=== PATIENT | male | born 1955 | race Caucasian/White ===

== ENCOUNTER 2017-10-09 19:55 | Inpatient (IN) | payer OTHER ==
[~2017-10-09] VITALS: Ht 182.9 cm; Wt 99.8 kg
--- NOTE | 2017-10-09 21:50 | ED GENERAL ADULT ---
History of Present Illness General Chief Complaint: Male Genitourinary Problems Stated Complaint: URINATING BLOOD Source: patient Exam Limitations: no limitations Vital Signs & Intake/Output Vital Signs & Intake/Output Vital Signs Date Time Temp Pulse Resp B/P B/P Pulse O2 O2 Flow FiO2 Mean Ox Delivery Rate 10/10 0046 98.7 99 17 141/80 98 Room Air 10/09 2330 98.5 98 20 125/72 96 Room Air 10/09 2238 100 18 130/82 96 Room Air 10/09 2004 96.0 117 18 97 Room Air ED Intake and Output 10/10 0000 10/09 1200 Intake Total 100 Output Total Balance 100 Intake, IV 100 Patient 220 lb Weight Allergies Coded Allergies: NO KNOWN ALLERGIES (01/18/13) Triage Note: PT TO ER C/C DIFFICULTY VOIDED, VOIDING CLOTS X 1 DAY. PAIN 02/05. DENIES N/V/D Triage Nurses Notes Reviewed? yes Onset: Gradual Duration: months Timing: intermittent HPI: 62 y/o male with h/o HTN and GA presenting with hematuria, clots and urinary retention x6 hours. Reports intermittent episodes of painless hematuria with clots overthe past several months. Normally self resolves, and therefore never sought medical evaluation. Nahomi had an episode of hematuria with clots that has now led to urinary retention and gradual onset suprapubic pain. Denies fevers, dysuria, flank pain. (Genny Bosch) Reconcile Medications Aspirin (Aspirin*) 325 MG TABLET 325 MG PO DAILY BLOOD THINNER (Reported) Lisinopril (Unknown Strength) TABLET (Unknown Dose) HTN (Reported) Metoprolol Succ XL (Toprol XL) (Unknown Strength) TAB (Unknown Dose) HTN ( Reported) Simvastatin (Simvastatin*) (Unknown Strength) TABLET (Unknown Dose) HTN ( Reported) (Virgil Clemons MD) Past History Travel History Traveled to [place] past 21 day No Medical History Any Pertinent Medical History? see below for history Cardiovascular: hypertension, myocardial infarction History of MRSA: No History of VRE: No History of CDIFF: No Surgical History Surgical History: non-contributory Psychosocial History Who do you live with Spouse Services at Home None What is your primary language Barbadian Tobacco Use: Current Not Daily Family History Family History, If Any: BROTHER Relation not specified for: FH: heart attack Hx Contributory? No (Genny Bosch) Review of Systems Review of Systems Constitutional: Reports: no symptoms. EENTM: Reports: no symptoms. Respiratory: Reports: no symptoms. Cardiovascular: Reports: no symptoms. GI: Reports: see HPI. Genitourinary: Reports: see HPI. Musculoskeletal: Reports: no symptoms. Skin: Reports: no symptoms. Neurological/Psychological: Reports: no symptoms. Hematologic/Endocrine: Reports: no symptoms. Immunologic/Allergic: Reports: no symptoms. (Genny Bosch) Physical Exam Physical Exam General Appearance: well developed/nourished, alert, awake, mild distress Head: atraumatic, normal appearance Eyes: Bilateral: normal appearance. Neck: normal inspection Respiratory: normal breath sounds, lungs clear Cardiovascular: regular rate/rhythm Gastrointestinal: soft, non-tender Back: normal inspection Extremities: normal inspection Neurologic/Psych: awake, alert, oriented x 3, normal gait, normal mood/affect Skin: intact, normal color, warm/dry Core Measures ACS in differential dx? No CVA/TIA Diagnosis: No Sepsis Present: No Sepsis Focused Exam Completed? No (Genny Bosch) Progress Differential Diagnoses I considered the following diagnoses in my evaluation of the patient: [Cystitis vs renal stone vs bladder malignancy vs RCC] Plan of Care: Orders Procedure Date/time Status Clear Liquid Diet 10/10 B Active CBC WITHOUT DIFFERENTIAL 10/10 0600 Active BASIC ELECTROLYTES PLUS BUN&CR 10/10 0600 Active Weight 10/10 0340 Active Teach/Educate 10/10 0340 Active Pain Treatment and Response 10/10 0340 Active Nutritional Intake, Monitor 10/10 0340 Active Isolation 10/10 0340 Active Patient Care Conference 10/10 0340 Active Pathway - chart 10/10 0306 Active Patient Data 10/10 0259 Active Code Status 10/10 0259 Active PATHOLOGY SPECIMEN 10/[address] in observation 10/10 UNK Active VTE Mechanical Prophylaxis 10/10 UNK Active Vital Signs 10/10 UNK Active Intake & Output 10/10 UNK Active Nevarez, Insertion/Removal/Asses 10/10 UNK Active Continuous Bladder Irrigation 10/10 UNK Active Activity/Ambulation 10/10 UNK Active EKG 10/09 2311 Active Continuous Bladder Irrigation 10/09 215 Active CULTURE,URINE 10/09 2144 Active URINALYSIS 10/09 2144 Active CBC WITHOUT DIFFERENTIAL 10/09 2144 Complete BASIC METABOLIC PANEL 10/09 2144 Complete Current Medications Sig/Ronal Start time Last Medication Dose Stop Time Status Admin Heparin Sodium 5,000 UNIT Q8 10/10 1400 AC (Porcine) Docusate Sodium 100 MG BID 10/10 0900 AC (Colace) Acetaminophen 650 MG Q6P PRN 10/10 314 AC (Tylenol) Dextrose/Sodium 1,000 ML .Q10H 10/10 031 AC 10/10 Chloride 0403 (D5-Normal Saline) Morphine Sulfate 2 MG Q2P PRN 10/10 314 AC (MORPHINE SULFATE) Morphine Sulfate 4 MG Q2P PRN 10/10 314 AC (MORPHINE SULFATE) Ondansetron HCl 4 MG Q6P PRN 10/10 314 AC (Zofran) Polyethylene Glycol 17 GM DAILY NEEDED PRN 10/10 314 AC (Miralax) Promethazine HCl 12.5 MG Q6P PRN 10/10 314 AC (Phenergen) 10/17 313 Laboratory Tests 10/09/172114: Anion Gap 14, Estimated GFR > 60, BUN/Creatinine Ratio 30.0 H, Glucose 116 H, Calcium 9.7, CBC w Diff NO MAN DIFF REQ, RBC 4.89, MCV 94.3 H, MCH 31.8 H, MCHC 33.7, RDW 13.2, MPV 8.8, Gran % 72.6, Lymphocytes % 18.6 L, Monocytes % 7.9, Eosinophils % 0.5, Basophils % 0.4, Absolute Granulocytes 8.7 H, Absolute Lymphocytes 2.2, Absolute Monocytes 0.9 H, Absolute Eosinophils 0.1, Absolute Basophils 0 Microbiology 10/09 2144 URINE ROUT: Urine Culture - COLB Labs unremarkable, normal kidney function. CT abdomen pelvis pending. 22F nevarez placed and attempted CBI. Pt unable to tolerate, completed ~1L and then stopped. Nevarez was transienting draining during CBI and now with recurrent obstruction. Attempted to flush and suction without success. Discussed with Dr. Sherman ( urology) and will eval pt in ED. Signed out to Dr. Clemons with CT scan and urology eval pending. Initial ED EKG: none (Bandar SERRANO,Genny) Departure Departure Disposition: STILL A PATIENT Condition: Stable Clinical Impression Primary Impression: Hematuria Secondary Impressions: Urinary retention Referrals: Michel Lilly MD (PCP/Family) Departure Forms: Customer Survey General Discharge Information (Genny Bosch) Departure Time of Disposition: 35 OR/GI Note Spoke With: Kerwin Sherman MD ED Treatment Decision: STEPH VALDES requires urgent operative management or an emergent procedure that cannot be performed in the Emergency Room setting. Transport To: [facility] PA/CAR COOPER Co-Sign Statement Statement: ED Attending supervision documentation- x I saw and evaluated the patient. I have also reviewed all the pertinent lab results and diagnostic results. I agree with the findings and the plan of care as documented in the PA's/CAR COOPER's documentation. Hematuria with clots and urinary retention to OR [] I have reviewed the ED Record and agree with the PA's/CAR COOPER's documentation. [] Additions or exceptions (if any) to the PAs/CAR COOPER's note and plan are summarized below: [] (Kaci CARROLL,Virgil) Critical Care Note Critical Care Note Critical Care Time: non-applicable (Genny Bosch)
[2017-10-09 22:28] LABS: ABSOLUTE BASOPHIL COUNT 0 /CUMM (0.0-0.2); ABSOLUTE EOSINOPHIL COUNT 0.1 /CUMM (0.0-0.7); ABSOLUTE GRANULOCYTE CT 8.7 /CUMM (1.4-6.5); ABSOLUTE LYMPH COUNT 2.2 /CUMM (1.2-3.4); ABSOLUTE MONOCYTE COUNT 0.9 /CUMM (0.10-0.60); BASOPHIL % 0.4 % (0.0-2.0); EOSINOPHIL % 0.5 % (0-5); GRANULOCYTE % 72.6 % (42.2-75.2); HEMATOCRIT 46.1 % (42-52); MEAN CORPUSCULAR HGB 31.8 PG (27.0-31.0); MEAN CORPUSCULAR HGB CONC 33.7 G/DL (33.0-37.0); MEAN CORPUSCULAR VOLUME 94.3 FL (80.0-94.0); MEAN PLATELET VOLUME 8.8 FL (7.4-10.4); PLATELET COUNT 202 /CUMM (130-400); RBC DISTRIBUTION WIDTH 13.2 % (11.5-14.5); RED BLOOD CELL CT 4.89 /CUMM (4.70-6.10); WHITE BLOOD CELL COUNT 11.9 /CUMM (4.8-10.8)
--- NOTE | 2017-10-10 00:13 | CT SCAN REPORT ---
EXAMINATION: CT ABDOMEN AND PELVIS WITH CONTRAST CLINICAL INFORMATION: Hematuria COMPARISON: None TECHNIQUE: Multidetector volumetric imaging was performed of the abdomen and pelvis following IV administration of 95 mL of Optiray 320 intravenous contrast. Sagittal and coronal reformatted images were obtained on the technologist's workstation. DLP: 528.88 mGy-cm FINDINGS: LUNG BASES: The visualized lung bases are unremarkable. LIVER, GALLBLADDER, AND BILIARY TREE: The liver is normal in size, shape, and attenuation. No focal hepatic lesion or biliary ductal dilatation is present. The gallbladder is unremarkable with no evidence of radiopaque gallstones, gallbladder wall thickening, or obvious pericholecystic inflammatory changes. PANCREAS: Unremarkable. SPLEEN: Unremarkable. ADRENAL GLANDS: Unremarkable. KIDNEYS AND URETERS: The left nephrogram is slightly delayed. There is a 2.7 cm left upper pole cyst. Additional subcentimeter hypoattenuating renal lesions bilaterally are too small to characterize. No right hydronephrosis. There is mild left hydroureteronephrosis which extends to the ureterovesicular junction. No obstructing calculus is seen bilaterally. BLADDER: Partially distended with a Lee catheter in place. There is a rounded hyperdense, mildly heterogeneous structure in the bladder dependently and measuring approximately 9.3 x 8.4 x 8.9 cm. There are a few scattered foci of internal gas. Additional gas is seen along the anterior aspect of the bladder. A small amount of simple fluid density urine is present in the anterior bladder. There is minimal stranding adjacent to the anterior bladder wall. GASTROINTESTINAL TRACT: There is minimal colonic diverticulosis without evidence of diverticulitis. The small and large bowel are otherwise unremarkable without evidence of obstruction or pericolonic inflammatory change. The appendix is unremarkable. No free fluid or free air is seen. ABDOMINAL WALL: There are small fat-containing inguinal hernias, left greater than right. LYMPH NODES: Normal. VASCULAR: Scattered atherosclerotic calcifications are present. PELVIC VISCERA: Unremarkable. OSSEOUS STRUCTURES: Degenerative changes are noted in the spine. IMPRESSION: 1. Hyperdense structure in the dependent portion of the bladder measuring 9.3 x 8.4 x 8.9 cm which could reflect clot, mass, or combination of clot and mass. Further evaluation with cystoscopy is recommended. 2. Mild left hydroureteronephrosis extending to the ureterovesicular junction, in keeping with a component of obstruction from the hyperdense bladder clot versus mass described above. No right hydronephrosis.
[2017-10-10] MEDS ORDERED: ASPIRIN325 M2 PO (00:43)
[2017-10-10] MEDS ORDERED: TOPROL XL25 M1 (00:44)
[2017-10-10] MEDS ORDERED: SIMVASTATIN5 M2 (00:44)
[2017-10-10] MEDS ORDERED: LISINOPRIL5 M1 (00:45)
--- NOTE | 2017-10-10 01:02 | Cons- Urology ---
General Information and HPI Consulting Request Date of Consult: 10/10/17 Requested By: DO LEE GREGORY-E.D. Reason for Consult: CLOT RETENTION. Source of Information: patient, family Exam Limitations: no limitations History of Present Illness: 62 YEAR OLD WITH SEVERAL YEAR HX OF INTERMITTENT GROSS HEMATURIA FOR WHICH HE HAS NOT SEEN ANYONE ABOUT. NOW PRESENTS AT 5PM IN ER WITH GROSS HEMATURIA-PT NOW IN CLOT RETENTION. CT RESULT PENDING. DENIES CP, SOB, RENAL COLIC, GI ISSUES. Allergies/Medications Allergies: Coded Allergies: NO KNOWN ALLERGIES (01/18/13) Home Med List: Aspirin (Aspirin*) 325 MG TABLET 325 MG PO DAILY BLOOD THINNER (Reported) Lisinopril (Unknown Strength) TABLET (Unknown Dose) HTN (Reported) Metoprolol Succ XL (Toprol XL) (Unknown Strength) TAB (Unknown Dose) HTN ( Reported) Simvastatin (Simvastatin*) (Unknown Strength) TABLET (Unknown Dose) HTN ( Reported) Current Medications: Current Medications Sig/Ronal Start time Last Medication Dose Route Stop Time Status Admin Acetaminophen 0 .STK-MED ONE 10/09 2052 DC IV Acetaminophen 1,000 MG ONCE ONE 10/09 2045 DC 10/09 N/A 1 UNIT IV 10/09 2058 2100 Hydromorphone HCl 1 MG ONCE ONE 10/10 0045 DC 10/10 IV 10/10 0046 0038 Hydromorphone HCl 0 .STK-MED ONE 10/10 0042 DC .ROUTE Lidocaine 0 .STK-MED ONE 10/10 0021 DC TOP Lidocaine 0 .STK-MED ONE 10/09 2111 DC TOP Morphine Sulfate 4 MG ONCE ONE 10/09 2330 DC 10/09 IV 10/09 2331 2330 Morphine Sulfate 0 .STK-MED ONE 10/09 2328 DC .ROUTE Morphine Sulfate 0 .STK-MED ONE 10/09 2216 DC .ROUTE Morphine Sulfate 4 MG ONCE ONE 10/09 2200 DC 10/09 IV 10/09 2200 2214 Past History Medical History Cardiovascular: hypertension, myocardial infarction Surgical History Pertinent Surgical History: non-contributory Family History Relations & Conditions If Any: BROTHER Relation not specified for: FH: heart attack Psychosocial History Where Do You Live? Home Who Do You Live With? spouse, child Services at Home: None Primary Language: Czech Smoking Status: Current Some Day Smoker ETOH Use: occasional use Illicit Drug Use: denies illicit drug use Functional Ability ADLs Independent: dressing, eating, toileting, bathing. Ambulation: independent IADLs Independent: shopping, housework, finances, food prep, telephone, transportation , medication admin. Employment History Employment: Employed Retired? no Review of Systems Review of Systems Constitutional: Reports: see HPI. EENTM: Denies: no symptoms. Cardiovascular: Denies: no symptoms. Respiratory: Denies: no symptoms. GI: Reports: abdominal pain, bloating. Genitourinary: Reports: frequency, hematuria. Musculoskeletal: Denies: no symptoms. Skin: Denies: no symptoms. Exam & Diagnostic Data Vital Signs and I&O Vital Signs Date Time Temp Pulse Resp B/P B/P Pulse O2 O2 Flow FiO2 Mean Ox Delivery Rate 10/10 0046 98.7 99 17 141/80 98 Room Air 10/09 2330 98.5 98 20 125/72 96 Room Air 10/09 2238 100 18 130/82 96 Room Air 10/09 2004 96.0 117 18 97 Room Air Intake & Output 10/10 0800 10/10 0000 10/09 1600 10/09 0800 10/09 0000 10/08 1600 Intake Total 100 Output Total Balance 100 Intake, IV 100 Patient 220 lb Weight Physical Exam General Appearance: well developed/nourished, moderate distress Head: atraumatic Eyes: Bilateral: normal appearance. Ears, Nose, Throat: normal pharynx Neck: normal inspection Respiratory: normal breath sounds Cardiovascular: regular rate/rhythm Gastrointestinal: soft Back: no vertebral tenderness Extremities: normal inspection Neurologic/Psych: no motor/sensory deficits, awake, alert, oriented x 3 Skin: intact, normal color Reproductive: Normal male genitalia Last 24 Hours of Labs: Laboratory Tests 10/09 2114 Chemistry Sodium (137 - 145 mmol/L) 140 Potassium (3.5 - 5.1 mmol/L) 4.5 Chloride (98 - 107 mmol/L) 108 H Carbon Dioxide (22 - 30 mmol/L) 19 L Anion Gap (5 - 16) 14 BUN (9 - 20 mg/dL) 27 H Creatinine (0.7 - 1.2 mg/dL) 0.9 Estimated GFR (>60 ml/min) > 60 BUN/Creatinine Ratio (7 - 25 %) 30.0 H Glucose (65 - 99 mg/dL) 116 H Calcium (8.4 - 10.2 mg/dL) 9.7 Hematology CBC w Diff NO MAN DIFF REQ WBC (4.8 - 10.8 /CUMM) 11.9 H RBC (4.70 - 6.10 /CUMM) 4.89 Hgb (14.0 - 18.0 G/DL) 15.5 Hct (42 - 52 %) 46.1 MCV (80.0 - 94.0 FL) 94.3 H MCH (27.0 - 31.0 PG) 31.8 H MCHC (33.0 - 37.0 G/DL) 33.7 RDW (11.5 - 14.5 %) 13.2 Plt Count (130 - 400 /CUMM) 202 MPV (7.4 - 10.4 FL) 8.8 Gran % (42.2 - 75.2 %) 72.6 Lymphocytes % (20.5 - 51.1 %) 18.6 L Monocytes % (1.7 - 9.3 %) 7.9 Eosinophils % (0 - 5 %) 0.5 Basophils % (0.0 - 2.0 %) 0.4 Absolute Granulocytes (1.4 - 6.5 /CUMM) 8.7 H Absolute Lymphocytes (1.2 - 3.4 /CUMM) 2.2 Absolute Monocytes (0.10 - 0.60 /CUMM) 0.9 H Absolute Eosinophils (0.0 - 0.7 /CUMM) 0.1 Absolute Basophils (0.0 - 0.2 /CUMM) 0 Imaging Results: PATIENT: STEPH VALDES PRESENT AGE: 62 PATIENT ACCOUNT NO: [id number] : 57 LOCATION: [facility] ORDERING PHYSICIAN: Genny SERRANO SERVICE DATE: 10/09/17 EXAM TYPE: CAT - CT ABD & PELVIS W IV CONTRAST EXAMINATION: CT ABDOMEN AND PELVIS WITH CONTRAST CLINICAL INFORMATION: Hematuria COMPARISON: None TECHNIQUE: Multidetector volumetric imaging was performed of the abdomen and pelvis following IV administration of 95 mL of Optiray 320 intravenous contrast. Sagittal and coronal reformatted images were obtained on the technologist's workstation. DLP: 528.88 mGy-cm FINDINGS: LUNG BASES: The visualized lung bases are unremarkable. LIVER, GALLBLADDER, AND BILIARY TREE: The liver is normal in size, shape, and attenuation. No focal hepatic lesion or biliary ductal dilatation is present. The gallbladder is unremarkable with no evidence of radiopaque gallstones, gallbladder wall thickening, or obvious pericholecystic inflammatory changes. PANCREAS: Unremarkable. SPLEEN: Unremarkable. ADRENAL GLANDS: Unremarkable. KIDNEYS AND URETERS: The left nephrogram is slightly delayed. There is a 2.7 cm left upper pole cyst. Additional subcentimeter hypoattenuating renal lesions bilaterally are too small to characterize. No right hydronephrosis. There is mild left hydroureteronephrosis which extends to the ureterovesicular junction. No obstructing calculus is seen bilaterally. BLADDER: Partially distended with a Lee catheter in place. There is a rounded hyperdense, mildly heterogeneous structure in the bladder dependently and measuring approximately 9.3 x 8.4 x 8.9 cm. There are a few scattered foci of internal gas. Additional gas is seen along the anterior aspect of the bladder. A small amount of simple fluid density urine is present in the anterior bladder. There is minimal stranding adjacent to the anterior bladder wall. GASTROINTESTINAL TRACT: There is minimal colonic diverticulosis without evidence of diverticulitis. The small and large bowel are otherwise unremarkable without evidence of obstruction or pericolonic inflammatory change. The appendix is unremarkable. No free fluid or free air is seen. ABDOMINAL WALL: There are small fat-containing inguinal hernias, left greater than right. LYMPH NODES: Normal. VASCULAR: Scattered atherosclerotic calcifications are present. PELVIC VISCERA: Unremarkable. OSSEOUS STRUCTURES: Degenerative changes are noted in the spine. IMPRESSION: 1. Hyperdense structure in the dependent portion of the bladder measuring 9.3 x 8.4 x 8.9 cm which could reflect clot, mass, or combination of clot and mass. Further evaluation with cystoscopy is recommended. 2. Mild left hydroureteronephrosis extending to the ureterovesicular junction, in keeping with a component of obstruction from the hyperdense bladder clot versus mass described above. No right hydronephrosis. 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 Copies To: Kerwin Sherman MD Consult Acknowledgment - Thank you for your consult request. Attending MD Review Statement Attending Statement Attending MD Statement: examined this patient, discuss w/resident/PA/[employer] Attending Assessment/Plan: TO OR NOW FOR CYSTO-CLOT EVACUATION
[2017-10-10 06:54] VITALS: BP 124/74
[2017-10-10 08:04] LABS: ABSOLUTE BASOPHIL COUNT 0 /CUMM (0.0-0.2); ABSOLUTE EOSINOPHIL COUNT 0 /CUMM (0.0-0.7); ABSOLUTE MONOCYTE COUNT 0.8 /CUMM (0.10-0.60); BASOPHIL % 0.2 % (0.0-2.0); MEAN CORPUSCULAR HGB 32.5 PG (27.0-31.0)
[2017-10-10 08:16] LABS: ABSOLUTE GRANULOCYTE CT 11.2 /CUMM (1.4-6.5); ABSOLUTE LYMPH COUNT 1.5 /CUMM (1.2-3.4); EOSINOPHIL % 0.2 % (0-5); MEAN CORPUSCULAR HGB CONC 34.5 G/DL (33.0-37.0); MEAN CORPUSCULAR VOLUME 94.3 FL (80.0-94.0); PLATELET COUNT 138 /CUMM (130-400); RBC DISTRIBUTION WIDTH 13.1 % (11.5-14.5); RED BLOOD CELL CT 4.33 /CUMM (4.70-6.10); WHITE BLOOD CELL COUNT 13.5 /CUMM (4.8-10.8)
[2017-10-10 08:17] LABS: HEMATOCRIT 40.9 % (42-52)
[2017-10-10 08:31] LABS: GRANULOCYTE % 82.8 % (42.2-75.2)
[2017-10-10] MEDS ORDERED: LISINOPRIL10 M1 PO (13:34)
[2017-10-10] MEDS ORDERED: TOPROL XL25 M1 PO (13:35)
[2017-10-10] MEDS ORDERED: PROTONIX40 M3 PO (13:35)
[2017-10-10] MEDS ORDERED: ATORVASTATIN CA40 M1 PO (13:35)
--- NOTE | 2017-10-10 13:41 | PN- Urology ---
Subjective Subjective: Awake, alert No complaints Pain is well controlled Objective Vital Signs and I&Os Vital Signs Date Time Temp Pulse Resp B/P B/P Pulse O2 O2 Flow FiO2 Mean Ox Delivery Rate 10/10 0800 Room Air 10/10 0654 97.9 86 16 124/74 96 10/10 0046 98.7 99 17 141/80 98 Room Air 10/09 2330 98.5 98 20 125/72 96 Room Air 10/09 2238 100 18 130/82 96 Room Air 10/09 2004 96.0 117 18 97 Room Air Intake & Output 10/10 1600 10/10 0800 10/10 0000 10/09 1600 10/09 0800 10/09 0000 Intake Total 250 100 Output Total 700 Balance -700 250 100 Intake, IV 250 100 Output, Urine 700 Patient 220 lb 220 lb Weight Weight Reported by Patient Measurement Method Physical Exam: afebrile, vss CBI: lightly pink tinged urine, flowing well Current Medications: Current Medications Sig/Ronal Start time Last Medication Dose Route Stop Time Status Admin Acetaminophen 2,000 MG .STK-MED ONE 10/10 1039 DC IV 10/10 1040 Acetaminophen 650 MG Q6P PRN 10/10 0315 AC PO Acetaminophen 0 .STK-MED ONE 10/09 2052 DC IV Acetaminophen 1,000 MG ONCE ONE 10/09 204 DC 10/09 N/A 1 UNIT IV 10/09 2058 2100 Atorvastatin Calcium 40 MG DAILY 10/10 1336 UNVr PO Dextrose/Sodium 1,000 ML .Q10H 10/10 0315 AC 10/10 Chloride IV 0403 Docusate Sodium 100 MG BID 10/10 0900 AC 10/10 PO 0759 Fentanyl Citrate 100 MCG .STK-MED ONE 10/10 1039 DC IV 10/10 1040 Heparin Sodium 5,000 UNIT Q8 10/10 1400 CAN (Porcine) SC Hydromorphone HCl 1 MG ONCE ONE 10/10 0045 DC 10/10 IV 10/10 0046 0038 Hydromorphone HCl 0 .STK-MED ONE 10/10 0042 DC .ROUTE Lidocaine 0 .STK-MED ONE 10/10 0021 DC TOP Lidocaine 0 .STK-MED ONE 10/09 2111 DC TOP Lisinopril 10 MG DAILY 10/10 1336 UNVr PO Metoprolol Succinate 25 MG DAILY 10/10 1336 UNVr PO Midazolam HCl 2 MG .STK-MED ONE 10/10 1039 DC IV 10/10 1040 Morphine Sulfate 2 MG Q2P PRN 10/10 0315 AC IV Morphine Sulfate 4 MG Q2P PRN 10/10 0315 AC IV Morphine Sulfate 4 MG ONCE ONE 10/09 2330 DC 10/09 IV 10/09 2331 2330 Morphine Sulfate 0 .STK-MED ONE 10/09 2328 DC .ROUTE Morphine Sulfate 0 .STK-MED ONE 10/09 2216 DC .ROUTE Morphine Sulfate 4 MG ONCE ONE 10/09 2200 DC 10/09 IV 10/09 2201 2214 Omeprazole 40 MG DAILY AC 10/10 1336 UNVr PO Ondansetron HCl 4 MG Q6P PRN 10/10 0315 AC IV Polyethylene Glycol 17 GM DAILY NEEDED PRN 10/10 0315 AC PO Promethazine HCl 12.5 MG Q6P PRN 10/10 0315 AC IV 10/17 0314 Assessment/Plan Assessment/Plan 62yo male admitted with urinary retention/hematuria now post op bladder tumor resection and hematuria catheter placement on CBI Discussed with dr Sherman CT - chest/abd/pelvis with contrast and urogram ordered - pending Plan is for patient to continue CBI until it is running clear, then may dc catheter and if the patient can urinate he can be discharged to home to follow up as an outpatient. Pathology pending All home meds restarted except for asa. Holding anticoagulation for now. ALPS Core Measures Venous Thromboembolism VTE Risk Factors Surgery No Mechanical VTE Prophylaxis d/t N/A MechProphylax Ordered No VTE Pharm Prophylaxis d/t Bleeding (Active)
[2017-10-10 14:40] VITALS: BP 110/72
--- NOTE | 2017-10-10 17:32 | CT SCAN REPORT ---
EXAMINATION: CT CHEST. CT ABDOMEN AND PELVIS WITH AND WITHOUT CONTRAST/CT UROGRAM CLINICAL INFORMATION: Hematuria. Bladder cancer. Rule out metastatic disease. Need to visualize distal left ureter to exclude involvement by cancer. COMPARISON: CT scan of the abdomen and pelvis dated 10/09/2017. TECHNIQUE: Noncontrast multidetector helical images of the abdomen and pelvis were performed. Multidetector CT helical images of the chest, abdomen and pelvis were performed following the administration of 95 mL of intravenous Optiray 320. The post contrast images of the abdomen and pelvis were performed with the 10 minute delay to obtain the urogram phase of enhancement. The data set was reformatted in the coronal and sagittal planes and reviewed on an independent workstation. DLP: 1208.44 mGy-cm. FINDINGS: CHEST: LUNGS: There is a tiny 2 mm nodule in the right middle lobe (series 7, image 278), of doubtful clinical significance. This nodule appears dense, though is too small to be confidently characterized as a calcified nodule. No suspicious focal lung nodule or mass is seen. Mild atelectatic changes as seen in the dependent portions of both lower lobes. No effusion or pneumothorax is seen. Central airways are patent. LYMPHOVASCULAR STRUCTURES: Aortic and heart size are normal. No pericardial effusion is seen. Moderate coronary artery calcifications are noted. There is a coronary stent in the left anterior descending coronary artery. No significant mediastinal, hilar or axillary adenopathy is present. THYROID GLAND: Unremarkable to the extent seen. CHEST: There is asymmetric enlargement of the left breast and asymmetric density in the subareolar left breast, possibly due to asymmetric gynecomastia. BONES: No suspicious focal finding. ABDOMEN AND PELVIS: LIVER, GALLBLADDER, BILIARY TREE: Liver normal size and attenuation. No focal cystic or solid mass or intra-or extrahepatic ductal dilatation. Hepatic and portal veins patent. The gallbladder partially distended and within normal limits. PANCREAS: Normal. No ductal dilatation, mass, or surrounding stranding. SPLEEN: Normal size and appearance. Splenic vein patent. ADRENAL GLANDS: Adrenal glands normal. KIDNEYS/URETERS/BLADDER: Kidneys bilaterally symmetric in size and function. In the parapelvic region of the mid right kidney, a 1.0 x 0.8 cm intermediate attenuation mass is seen without significant enhancement postcontrast, likely representing a hyperdense cyst. No other right renal masses seen. In the left kidney, a benign partially exophytic upper pole simple cyst is seen, measuring 2.6 x 2.8 cm. Additional 0.8 cm diameter low-attenuation masses seen in the mid left renal cortex, too small to further characterize but most likely also a cyst. No additional left renal mass is seen. No nephrolithiasis or perinephric stranding. The right ureter is decompressed and within normal limits. There is mild left-sided hydroureteronephrosis down to the bladder. There is abnormal diffuse bladder wall thickening seen along the left lateral bladder margin and extending across the ureterovesical junction region to the posterior bladder base. Findings are consistent with the patient's known bladder cancer. No definite invasion into the distal left ureter is seen. Bladder is decompressed by a Lee catheter with internal air locules seen. The bladder is abnormal in appearance with a large approximately 3.4 x 3.0 x 2.3 cm mass seen along the posterior left lateral bladder wall in region of the left ureterovesical junction. There is extension of abnormal bladder wall thickening from this mass along the left lateral margin of the bladder and posterior medially along the base of the bladder, measuring up to 1 cm in diameter. The perivesical fat shows subtle infiltrative change and indistinctness of the tissue planes, suggesting transmural extension of disease. There is loss of the fat plane between the bladder and the adjacent rectum, though no definite definite invasion into the rectal wall is seen. PELVIC VISCERA: The prostate gland is mildly enlarged and impresses upon the bladder base. Seminal vesicles bilaterally are symmetric and unremarkable. BOWEL LOOPS: Normal. Small and large bowel loops decompressed. Appendix in right lower quadrant normal. ABDOMINAL WALL: There is a small fat-containing umbilical hernia. LYMPHOVASCULAR STRUCTURES: Abdominal aorta normal in caliber. No periaortic collections. Moderate atherosclerotic calcifications of the aorta are seen. No abdominal or pelvic adenopathy or free fluid collection. BONES: Mild degenerative disc disease is seen at the lumbosacral junction. Associated mild facet arthropathy is seen. Mild vertebral spondylosis is seen at all levels in the lumbar spine. No suspicious bone findings. IMPRESSION: 1. Large approximately 3.4 x 3.0 x 2.3 cm posterior left lateral bladder wall mass is seen in region of the left ureterovesical junction with more infiltrate of bowel wall thickening extending from this mass along the left lateral and posterior bladder wall. This mass causes obstruction of the left ureter, resulting in mild left-sided hydroureteronephrosis. However, no definite tumor invasion of the left ureter is seen. There is loss of the fat plane between the abnormal bladder and the adjacent rectum, though no definite invasion into the rectum can be confirmed on this exam. 2. No significant adenopathy is seen in the chest, abdomen or pelvis. 3. No evidence of distant metastatic disease to the chest. A nonspecific 2 mm nodule in the right middle lobe is seen, felt to be of doubtful clinical significance. Conservative imaging follow-up in 3-6 months is recommended for reassessment. 4. Moderate coronary artery calcifications and left anterior descending coronary artery stent. 5. Asymmetric glandular density of the subareolar left breast. Findings may be related to asymmetric gynecomastia. Close clinical correlation and follow-up evaluation with mammogram/ultrasound is recommended. 6. Probable bilateral renal cysts as discussed above. 7. Enlarged heterogeneous prostate gland. 8. Small fat-containing umbilical hernia.
[2017-10-10 21:49] VITALS: BP 110/70
[2017-10-11 01:53] VITALS: BP 108/58
[2017-10-11 06:26] VITALS: BP 108/66
--- NOTE | 2017-10-11 08:20 | PN- Urology ---
See Addendum Subjective Subjective: No acute overnight events reported. Discomfort noted when nevarez bag full and urine filling bladder. Immediate relief when emptied, no residual discomfort. No chest pain, sob, difficulty breathing. Has chest congestion in am, clears with cough, no deviation from baseline per patient. No nausea or vomitting. Has been oob. Objective Vital Signs and I&Os Vital Signs Date Time Temp Pulse Resp B/P B/P Pulse O2 O2 Flow FiO2 Mean Ox Delivery Rate 10/11 0809 68 108/66 10/11 0809 68 108/66 10/11 0626 98.2 68 16 108/66 96 Room Air 10/11 0153 98.6 69 16 108/58 94 Room Air 10/10 2149 98.9 86 17 110/70 95 Room Air 10/10 1612 87 110/64 10/10 1612 87 110/64 10/10 1440 98.4 103 18 110/72 92 Room Air Intake & Output 10/11 1600 10/11 0800 10/11 0000 10/10 1600 10/10 0800 10/10 0000 Intake Total 1040 1750 920 250 100 Output Total 1250 Balance 1040 1750 -330 250 100 Intake, IV 800 800 800 250 100 Intake, Oral 240 950 120 Number 0 Bowel Movements Output, Urine 1250 Patient 220 lb 220 lb Weight Weight Reported by Patient Measurement Method Physical Exam: General: Alert and oriented x3, no acute distress Cardiac: RRR, s1s2 Pulm: Bilateral expiratory wheeze, clear with cough, non-labored respiratory effort Abd: Non-distended Extremities: Neurovascular status intact, bilateral calves soft/non-tender, no peripheral edema Urologic: Urine remains slightly pink tinged, occasional clot noted, some sediment in tube, cbi flowing freely. Assessment/Plan Assessment/Plan This is a 62 year old male, POD 1, s/p TURBT with initiation of CBI. PMH significant for htn and CAD with stents -Continue cbi for now, will discuss with Dr. Sherman prior to dc -Incentive spirometer -COntinue diet as tolerated -OOB encouraged -No anticoagulation due to surgical contraindication presently -Will dc to home for f/u as outpatient when urine clears and nevarez removed Will discuss poc with Dr. Sherman Core Measures Venous Thromboembolism VTE Risk Factors Surgery No Mechanical VTE Prophylaxis d/t N/A MechProphylax Ordered No VTE Pharm Prophylaxis d/t Bleeding (Active)
[2017-10-11 14:12] VITALS: BP 104/61
--- NOTE | 2017-10-11 18:02 | Patient Discharge Instructions ---
Discharge Instructions General Discharge Information You were seen/treated for: Acute urinary retention/hematuria You had these procedures: Cystoscopy with TransUrethral Resection of Bladder Tumor Continuous bladder irrigation postoperatively Watch for these problems: Inability to urinate Worsening pain with urination Increasingly bloody urination Abdominal distension and pain Worsening back pain Fever greater than 101.5 Call Surgeon to remove: NEXT STAGE Special Instructions: Please do not restart aspirin in anticipation of surgical intervention within 2- 3 days following hospital discharge Diet Continue normal diet: Yes Recommended Diet: Heart Healthy Activity Full Activity/No Limits: No Activity Self Limited: Yes Activity Limited to: Weight bear as tolerated Acute Coronary Syndrome Inclusion Criteria At DC or during hospital stay patient has or had the following: ACS DIAGNOSIS No Discharge Core Measures Meds if any: Prescribed or Continued at Discharge Aspirin Yes Beta-Martha No Meds if any: NOT Prescribed or Continued at Discharge Congestive Heart Failure Inclusion Criteria At DC or during hospital stay patient has or had the following: CHF DIAGNOSIS No Discharge Core Measures Meds if any: Prescribed or Continued at Discharge Meds if any: NOT Prescribed or Continued at Discharge Cerebrovascular accident Inclusion Criteria At DC or during hospital stay patient has or had the following: CVA/TIA Diagnosis No Discharge Core Measures Meds if any: Prescribed or Continued at Discharge Meds if any: NOT Prescribed or Continued at Discharge Venous thromboembolism Inclusion Criteria VTE Diagnosis No VTE Type NONE VTE Confirmed by (Test) NONE Discharge Core Measures - Per Current guidelines, there needs to be overlap - treatment for the first 5 days of Warfarin therapy. - If discharged on Warfarin prior to 5 days of - overlap therapy, the patient will need to be - assessed for post discharge needs including - *Post discharge parental anticoagulation - *Warfarin and/or parental anticoagulation education - *Follow up date to check INR post discharge At least 5 days overlap therapy as Inpatient No Meds if any: Prescribed or Continued at Discharge Note: Overlap Therapy is Warfarin and Anticoagulant Meds if any: NOT Prescribed or Continued at Discharge
--- NOTE | 2017-10-11 18:09 | Surgical Discharge Summary ---
Visit Information Visit Dates Admission Date: 10/10/17 Discharge Date: 10/12/17 History of Present Illness Chief Complaint: Urinary/clot retention, gross hematuria Medical History Blood Transfusion Hx: No Cardiovascular: hypertension, myocardial infarction History of MRSA: No History of VRE: No History of CDIFF: No Isolation History: Standard Surgical History Pertinent Surgical History: non-contributory Family History Relations & Conditions If Any: BROTHER Relation not specified for: FH: heart attack Psychosocial History Where Do You Live? Home Who Do You Live With? Spouse Services at Home: None What is Your Primary Language? Danish ETOH Use: occasional use Review of Systems: See H&P Hospital Course Course Attending Physician: Kerwin Sherman MD Primary Care Physician: Vijaya CARROLL,Michel [facility] Course: Griselda was admitted to the hospital with complaints of acute clot retention and gross hematuria for which he presented to Emergency Department. He was urgently taken to operating room for cystoscopy with clot evacuation. Intra-operative findings were consistend with bladder mass and a partial resection was completed. He tolerated the procedure well. He was placed on continuous bladder irrigation until urine was clear of micheal blood and clot. Throughout his hospital course he remained hemodynamically stable. He anticipates follow up for further intervention as outpatient with Dr. Sherman on 10/15/2017. Complications: None Allergies: Coded Allergies: NO KNOWN ALLERGIES (01/18/13) Disposition Summary Disposition Principal Diagnosis: Bladder tumor Additional Diagnosis: none Discharge Disposition: home or self care Discharge Instructions General Discharge Information Code Status: Full Code Patient's Diet: Heart healthy, advance as tolerated Patient's Activity: As tolerated Follow-Up Instructions/Appts: Follow up with Dr. Sherman for futher workup and intervention as outpatient on 10/15/2017 Medications at Discharge Discharge Medications: Stop taking the following medications: Aspirin (Aspirin*) 325 MG TABLET ORAL DAILY Continue taking these medications: Lisinopril (Lisinopril) 10 MG TABLET 1 Tablet ORAL DAILY Metoprolol Succ XL (Toprol XL) 25 MG TAB 1 Tablet ORAL DAILY Pantoprazole Sodium (Protonix) 40 MG TABLET.DR 1 Tablet ORAL DAILY Atorvastatin Calcium (Atorvastatin Calcium) 40 MG TABLET 1 Tablet ORAL DAILY Copies To: Vijaya CARROLLMichel
--- NOTE | 2017-10-11 18:26 | Operative Report ---
Operative/Inv Procedure Report Surgery Date: 10/10/17 Name of Procedure: cysto: evacuation of large clot: TURBT/fulguration of large bladder tumor Pre-Operative Diagnosis: gross hematuria with clot retention Post-Operative Diagnosis: clot retention: large bladder mass Estimated Blood Loss: 2 units of old blood in bladder Surgeon/Parquetry Layer: Kerwin Sherman MD Anesthesia: laryngeal mask airway Drains: 22 fr 3-way nevarez with NS CBI Specimens: bladder clot: bladder tumor Complications: none Condition: resection of bladder tumor stopped after acheiving good hemostasis. Will bring pt back to complete TURBT of large bladder tumor when pt sufficiently stable and OFF of 325Aspirin to minimize further blood loss. Operative/Procedure Note Note: The patient was taken to the operating room, and placed on the OR table in supine position. Timeout was performed, with the patient awake, to confirm correct patient, procedure, anesthesia, antibiotics, and other pertinent guerrero- operative information. After adequate anesthesia and antibiotics, the patient was then placed in lithotomy stirrups, draped and prepped in usual surgical fashion. A 26 Occitan resectoscope sheath with a 30 angle lens, and 24 Occitan loop, was inserted into the urethra, and advanced into the bladder without difficulty. Upon entering the bladder, his is is a large amount clot was seen in the bladder. Irrigation using Kamini syringe was performed in order to extract a large amount of clot. Once the clot was extracted, cystoscopy was performed, revealing a very large papillary mass that appears to be protruding from the left lateral wall of the bladder. An additional golf ball size tumor was seen on the right side of the bladder which was not bleeding. The right orifice was visualized with clear reflux of urine. Under direct visualization, this very large papillary lesion on the left wall the bladder was resected from superficial to deeper layers, until I was able to resect large amount of the tumor, and fulgurate the tumor in order to achieve good hemostasis. I did not want to resect any further as the patient was on aspirin 325 mg twice a day. The bladder tumor specimen were evacuated out and sent to pathology. The bladder was copiously irrigated once again with 3 L of sorbitol. The resectoscope was removed leaving the bladder full. The bladder was drained by placing a 22 3-way Nevarez catheter, without difficulty, draining light pink fluid. 30 mL of sterile water was placed in the balloon, and the 3-way Nevarez catheter was used for normal saline continuous bladder irrigation. All sponge needle and instrument count were correct at the end of the case. The patient tolerated procedure well was then taken to recovery room in satisfactory condition. Findings: large bladder cancer (soft ball size) on left wall and golf ball size tumor on right wall of bladder: right orifice clear, and left orifice NOT visualized due to bladder tumor obstructing view. Discharge Disposition: PACU CC: Lane CARROLL,Rubin Mary MD PHD,Jostin Anne
[2017-10-11 22:34] VITALS: BP 123/65
[2017-10-12 06:30] VITALS: BP 112/63
--- NOTE | 2017-10-12 07:05 | PN- Urology ---
Subjective Subjective: Discomfort with respect to nevarez catheter, unchanged. Anticipates nevarez removal this morning, and discharge home today after voiding. He understands the plan to stop aspirin and return saturday next week for follow up procedure by . He has been ambulating well. No dizziness. No shortness of breath. No chest pains. Passing flatus and tolerating diet without nausea. Objective Vital Signs and I&Os Vital Signs Date Time Temp Pulse Resp B/P B/P Pulse O2 O2 Flow FiO2 Mean Ox Delivery Rate 10/11 2234 99.2 72 20 123/65 95 Room Air 10/11 1412 97.6 76 18 104/61 96 Room Air 10/11 0809 68 108/66 10/11 0809 68 108/66 10/11 0800 96 Room Air Intake & Output 10/12 0800 10/12 0000 10/11 1600 10/11 0800 10/11 0000 10/10 1600 Intake Total 470 217 6945 1040 1750 920 Output Total 760 461 557 8138 Balance -223 46 2491 1040 1750 -330 Intake, IV 10 240 810 800 800 800 Intake, Oral 480 240 840 240 950 120 Number 0 0 0 Bowel Movements Output, Urine 760 982 283 1071 Physical Exam: General - alert & oriented x 3. comfortable. no acute distress. Lungs - clear bilaterally. no w/r/r. Cardiac - s1s2. reg. Abdomen - soft. nontender. nondistended. - urine slightly pink tinged with small blood tinged sediment in tube Extremities - warm bilaterally. no c/c/e. calves soft and nontender b/l. Current Medications: Current Medications Sig/Ronal Start time Last Medication Dose Route Stop Time Status Admin Acetaminophen 650 MG .STK-MED ONE 10/12 2115 DC PO 10/11 2116 Acetaminophen 650 MG .STK-MED ONE 10/11 1349 DC PO 10/11 1350 Acetaminophen 650 MG Q6P PRN 10/10 314 AC 10/11 PO 2116 Aspirin Buffered 81 MG DAILY 10/12 0900 CAN PO Atorvastatin Calcium 40 MG 1700 10/10 1700 AC 10/11 PO 1610 Dextrose/Sodium 1,000 ML .Q10H 10/10 0315 DC 10/11 Chloride IV 1611 Docusate Sodium 100 MG BID 10/10 0900 AC 10/11 PO 2116 Lisinopril 10 MG DAILY 10/10 1336 10/11 PO 0809 Metoprolol Succinate 25 MG DAILY 10/10 1336 AC 10/11 PO 0809 Morphine Sulfate 2 MG Q2P PRN 10/10 314 DC 10/10 IV 1400 Morphine Sulfate 4 MG Q2P PRN 10/10 314 DC 10/10 IV 1929 Omeprazole 40 MG DAILY AC 10/10 1336 AC 10/12 PO 0614 Ondansetron HCl 4 MG Q6P PRN 10/10 314 AC IV Oxycodone/ 2 TAB Q4P PRN 10/11 1745 AC 10/12 Acetaminophen PO 614 Polyethylene Glycol 17 GM DAILY NEEDED PRN 10/10 314 AC PO Promethazine HCl 12.5 MG Q6P PRN 10/10 314 DC IV 10/17 313 Results Last 48 Hours of Labs: Laboratory Tests 10/10 0752 Chemistry Sodium (137 - 145 mmol/L) 142 Potassium (3.5 - 5.1 mmol/L) 4.6 Chloride (98 - 107 mmol/L) 105 Carbon Dioxide (22 - 30 mmol/L) 27 Anion Gap (5 - 16) 9 BUN (9 - 20 mg/dL) 25 H Creatinine (0.7 - 1.2 mg/dL) 0.7 Estimated GFR (>60 ml/min) > 60 BUN/Creatinine Ratio (7 - 25 %) 35.7 H Hematology CBC w Diff NO MAN DIFF REQ WBC (4.8 - 10.8 /CUMM) 13.5 H RBC (4.70 - 6.10 /CUMM) 4.33 L Hgb (14.0 - 18.0 G/DL) 14.1 Hct (42 - 52 %) 40.9 L MCV (80.0 - 94.0 FL) 94.3 H MCH (27.0 - 31.0 PG) 32.5 H MCHC (33.0 - 37.0 G/DL) 34.5 RDW (11.5 - 14.5 %) 13.1 Plt Count (130 - 400 /CUMM) 138 MPV (7.4 - 10.4 FL) 9.0 Gran % (42.2 - 75.2 %) 82.8 H Lymphocytes % (20.5 - 51.1 %) 10.8 L Monocytes % (1.7 - 9.3 %) 6.0 Eosinophils % (0 - 5 %) 0.2 Basophils % (0.0 - 2.0 %) 0.2 Absolute Granulocytes (1.4 - 6.5 /CUMM) 11.2 H Absolute Lymphocytes (1.2 - 3.4 /CUMM) 1.5 Absolute Monocytes (0.10 - 0.60 /CUMM) 0.8 H Absolute Eosinophils (0.0 - 0.7 /CUMM) 0 Absolute Basophils (0.0 - 0.2 /CUMM) 0 Assessment/Plan Assessment/Plan This is a 62 year old male with hx htn and cad s/p stents, POD#2 s/p cysto, evacuation of large clot, TURBT/fulguration of large bladder tumor, for gross hematuria with clot retention (2u old blood in bladder), secondary to larg bladder mass tolerating diet pain controlled d/c nevarez and cbi this morning voiding trial oob/ambulating well continue to hold aspirin no a/c due to surgical contraindication (bleeding) plan for discharge to home today after able to void s/p nevarez removal f/u next week with Core Measures Venous Thromboembolism VTE Risk Factors Surgery No Mechanical VTE Prophylaxis d/t N/A MechProphylax Ordered No VTE Pharm Prophylaxis d/t Bleeding (Active)
[2017-10-12 08:08] VITALS: BP 118/72
== END 2017-10-12 11:40 | DRG 670 ==
LOC: ERH 19:55 → 2NB 10-10 02:50 → CRI 10-10 02:50 → 2NB 10-10 06:14 → ENPENDDIS 10-12 07:03 → 2NB 10-12 11:40
PROVIDERS: Physician Assistant; Physician Assistant Surgical
PROC: 0TBB8ZZ Excision of Bladder, Via Natural or Artificial Opening Endoscopic (ICD-10-PCS; principal; 2017-10-11)
DX: D49.4 Neoplasm of unspecified behavior of bladder (principal); F17.210 Nicotine dependence, cigarettes, uncomplicated; E78.5 Hyperlipidemia, unspecified; I10 Essential (primary) hypertension; I25.2 Old myocardial infarction; Z98.61 Coronary angioplasty status
CPT/HCPCS: 2NBP; 36592; 74177; 74178; 82436; 87086; 93005; 93010; 96365; 96375; 96376; J0131; J0696; J1644; J2250; J2405; J2550; J3010; J7042

== ENCOUNTER 2017-10-15 02:04 | Observation (INO) | payer OTHER ==
[~2017-10-15] VITALS: Ht 182.9 cm; Wt 96.2 kg
[~2017-10-15 02:04] MED LIST: ASPIRIN325 M2 PO; ATORVASTATIN CA40 M1 PO; LISINOPRIL10 M1 PO; LISINOPRIL5 M1; PROTONIX40 M3 PO; SIMVASTATIN5 M2; TOPROL XL25 M1; TOPROL XL25 M1 PO
[2017-10-15 16:00] VITALS: BP 124/72
[2017-10-15 21:49] VITALS: BP 112/60
[2017-10-16 06:55] VITALS: BP 116/58
[2017-10-16] MEDS ORDERED: PERCOCET 5-3251 EACH PO (07:13)
[2017-10-16] MEDS ORDERED: CIPRO500 M1 PO (07:13)
[2017-10-16] MEDS ORDERED: DOCUSATE SODIU100 M3 PO (07:13)
--- NOTE | 2017-10-16 09:51 | PN- Urology ---
Surgical Brief Attending Note Brief Attending Note: Pt placed in obs for post op hematuria requiring cbi
== END 2017-10-16 11:50 ==
LOC: STS 02:04 → PACUH 13:22 → ENRESERV 13:32 → ENTRNSPT 15:24 → EDTRNSPT 15:30 → EDTRNSPTSTS 15:30 → 2NB 15:38 → CMPTRNSPT 15:44 → ENPENDDIS 10-16 07:15 → 2NB 10-16 11:50 → EDPENDDISDT 10-17 07:15
DX: C67.9 Malignant neoplasm of bladder, unspecified (principal); I25.10 Atherosclerotic heart disease of native coronary artery without angina pectoris; Z95.5 Presence of coronary angioplasty implant and graft; E78.5 Hyperlipidemia, unspecified; I10 Essential (primary) hypertension
CPT/HCPCS: 6040; 36592; 96372; G0378; J0131; J1644; J2405; J7042; J9280